=== PATIENT | female | born 1960 | race Caucasian/White ===

== ENCOUNTER 2018-09-08 11:57 | Emergency (ER) | payer BC ==
[~2018-09-08] VITALS: Ht 157.5 cm; Wt 81.6 kg
[2018-09-08 12:05] VITALS: BP_SYST 163
[2018-09-08 13:26] LABS: HEMATOCRIT 41.6 % (36-48); LYMPHOCYTES # (AUTO) 1.5 K/uL (1.0-5.5); MEAN CORPUSCULAR HGB CONC 34 % (32-36); MONOCYTES # (AUTO) 0.6 K/uL (0.0-1.0)
[2018-09-08 13:46] LABS: BASOPHILS % (AUTO) 0.9 % (0.0-2.0); EOSINOPHILS % (AUTO) 1.9 % (0.0-4.0); HEMOGLOBIN 13.8 g/dL (12.0-16.0); LYMPHOCYTES % (AUTO) 11.1 % (20.5-51.5); MEAN CORPUSCULAR HEMOGLOBIN 32 pg (27-31); MEAN CORPUSCULAR VOLUME 95 fL (79.0-98.0); MONOCYTES % (AUTO) 4.6 % (1.7-9.3); NEUTROPHILS # (AUTO) 11.3 K/uL (1.8-7.7); NEUTROPHILS % (AUTO) 81.5 % (40.0-70.0); PLATELET COUNT (AUTO) 272 K/uL (130-430); RED BLOOD CELL COUNT(AUTO) 4.31 MIL/uL (4.2-6.2); RED CELL DISTRIBUTION WIDTH 13.5 % (9.0-15.0); WHITE BLOOD COUNT (AUTO) 13.8 K/uL (4.8-10.8)
[2018-09-08 13:47] LABS: BASOPHILS # (AUTO) 0.1 K/uL (0.0-0.2); EOSINOPHILS # (AUTO) 0.3 K/uL (0.0-0.4)
[2018-09-08 13:57] LABS: ANION GAP 6 (5-15); CALCIUM 9.3 mg/dL (8.4-11.0); CHLORIDE 102 mmol/L (98-107); CREATININE 1.03 mg/dL (0.55-1.30); GLUCOSE 98 mg/dL (70-99); POTASSIUM 4.4 mmol/L (3.5-5.1); SODIUM SERUM 136 mmol/L (136-145); UREA NITROGEN, BLOOD 11 mg/dL (8-21)
[2018-09-08 13:58] LABS: GFR AFRICAN AMERICAN 71 mL/min (>90)
[2018-09-08 14:01] LABS: INR 0.9 (0.8-1.2); PROTHROMBIN TIME 9.7 SECS (9.5-12.5)
[2018-09-08 14:14] LABS: ALANINE AMINOTRANSFERASE 40 U/L (12-78); ALBUMIN 3.4 g/dL (3.4-4.8); ASPARTATE AMINOTRANSFERASE 21 U/L (10-37); FREE T4 (FREE THYROXINE) 0.7 ng/dL (0.6-1.6); TOTAL BILIRUBIN 0.3 mg/dL (0.0-1.0)
[2018-09-08 14:15] LABS: ALCOHOL, BLOOD < 3 mg/dL (<10)
[2018-09-08] MEDS ORDERED: SULFAMETHOXAZOLE/TRIMETHOPR DS 1 TABLET PO ONE (15:00)
[2018-09-08 15:18] LABS: BILIRUBIN,URINE NEGATIVE (NEGATIVE); BLOOD, URINE NEGATIVE (NEGATIVE); CLARITY/URINE CLOUDY (CLEAR); COLOR,URINE YELLOW (YELLOW); GLUCOSE,URINE NEGATIVE (NEGATIVE); KETONES,URINE NEGATIVE (NEGATIVE); LEUKOCYTE ESTERASE ,URINE 2+ (NEGATIVE); NITRITE, URINE NEGATIVE (NEGATIVE); PROTEIN URINE 1+ (NEGATIVE); UROBILINOGEN,URINE 0.2 (0.2-1.0)
[2018-09-08 15:24] LABS: BARBITURATE, URINE NEGATIVE (NEG <=200); BENZODIAZEPINE, URINE POSITIVE (NEG <=150); CANNABINOID, URINE NEGATIVE (NEG <=50); COCAINE, URINE NEGATIVE (NEG <=150); METHAMPHETAMINES SCREEN,URINE NEGATIVE (NEG <=500); OPIATE, URINE NEGATIVE (NEG <=100); PHENCYCLIDINE SCREEN,URINE NEGATIVE (NEG <=25); UR TRICYCLIC ANTIDEPRESSANTS NEGATIVE (NEG <=300); URINE AMPHETAMINE NEGATIVE (NEG <=500); URINE METHADONE NEGATIVE (NEG <=200); URINE OXYCODONE SCREEN NEGATIVE (NEG <=100); URINE PROPOXYPHENE SCREEN NEGATIVE (NEG <=300)
[2018-09-08 15:32] LABS: BACTERIA,URINE MODERATE /HPF (None Seen); MUCUS,URINE 1+ /LPF (None Seen); RBC,URINE 20-50 /HPF (0-3); WBC,URINE 0-3 /HPF (0-3)
[2018-09-08 15:35] VITALS: BP_SYST 134
== END 2018-09-08 15:35 | disposition home or self-care (01) ==
LOC: SED 11:57
DX: N39.0 Urinary tract infection, site not specified (principal); R53.1 Weakness; I10 Essential (primary) hypertension; Z86.73 Personal history of transient ischemic attack (TIA), and cerebral infarction without residual deficits; Z91.041 Radiographic dye allergy status
CPT/HCPCS: 36415; 70450; 71045; 74018; 80053; 80307; 81000; 81025; 83605; 83880; 84439; 84484; 85025; 85610; 87040; 87086; 93005; 99284; G0482

== ENCOUNTER 2021-09-25 02:22 | Inpatient (IN) | payer BC, SELFPAY ==
[~2021-09-25] VITALS: Ht 154.9 cm; Wt 80.7 kg
[2021-09-25 02:22] VITALS: BP_SYST 141
[2021-09-25] MEDS ORDERED: ONDANSETRON HCL 4 MG/2 ML VIAL IVP ONE (02:45)
[2021-09-25 03:35] LABS: BASOPHILS # (AUTO) 0.1 K/uL (0.0-0.2); BASOPHILS % (AUTO) 1.2 % (0.0-2.0); EOSINOPHILS # (AUTO) 0.3 K/uL (0.0-0.4); HEMATOCRIT 35.7 % (36-48); HEMOGLOBIN 11.9 g/dL (12.0-16.0); LYMPHOCYTES # (AUTO) 1.1 K/uL (1.0-5.5); LYMPHOCYTES % (AUTO) 13.1 % (20.5-51.5); MEAN CORPUSCULAR HEMOGLOBIN 33 pg (27-31); MEAN CORPUSCULAR HGB CONC 33 % (32-36); MEAN CORPUSCULAR VOLUME 99 fL (79.0-98.0); MONOCYTES # (AUTO) 0.4 K/uL (0.0-1.0); MONOCYTES % (AUTO) 5.3 % (1.7-9.3); NEUTROPHILS # (AUTO) 6.5 K/uL (1.8-7.7); NEUTROPHILS % (AUTO) 77.4 % (40.0-70.0); PLATELET COUNT (AUTO) 284 K/uL (130-430); RED CELL DISTRIBUTION WIDTH 14.9 % (9.0-15.0); WHITE BLOOD COUNT (AUTO) 8.4 K/uL (4.8-10.8)
[2021-09-25 03:44] LABS: ANION GAP 12 (5-15); CHLORIDE 105 mmol/L (98-107); CREATININE 0.65 mg/dL (0.55-1.30); GFR AFRICAN AMERICAN 119 mL/min (>90); GLUCOSE 111 mg/dL (70-99); POTASSIUM 4.4 mmol/L (3.5-5.1); SODIUM SERUM 142 mmol/L (136-145); UREA NITROGEN, BLOOD 13 mg/dL (8-21)
[2021-09-25] MEDS ORDERED: LORazepam 2 MG/ML VIAL IVP ONE (03:45)
[2021-09-25 03:56] LABS: ALANINE AMINOTRANSFERASE 28 U/L (12-78); ALBUMIN 3.1 g/dL (3.4-4.8); ALCOHOL, BLOOD < 3 mg/dL (<10); ASPARTATE AMINOTRANSFERASE 28 U/L (10-37); TOTAL BILIRUBIN 0.4 mg/dL (0.0-1.0)
[2021-09-25 08:41] LABS: BILIRUBIN,URINE NEGATIVE (NEGATIVE); BLOOD, URINE NEGATIVE (NEGATIVE); CLARITY/URINE CLEAR (CLEAR); COLOR,URINE YELLOW (YELLOW); GLUCOSE,URINE NEGATIVE (NEGATIVE); KETONES,URINE NEGATIVE (NEGATIVE); LEUKOCYTE ESTERASE ,URINE NEGATIVE (NEGATIVE); NITRITE, URINE NEGATIVE (NEGATIVE); PH,URINE 6.5 (5.0-8.0); PROTEIN URINE NEGATIVE (NEGATIVE); UROBILINOGEN,URINE 0.2 (0.2-1.0)
[2021-09-25] MEDS ORDERED: ZONI100C42 PO (08:50)
[2021-09-25] MEDS ORDERED: LAMO200T2 PO (08:50)
[2021-09-25] MEDS ORDERED: LACO200T2 PO (08:50)
[2021-09-25 08:56] LABS: BARBITURATE, URINE NEGATIVE (NEG <=200); BENZODIAZEPINE, URINE NEGATIVE (NEG <=150); CANNABINOID, URINE NEGATIVE (NEG <=50); COCAINE, URINE NEGATIVE (NEG <=150); METHAMPHETAMINES SCREEN,URINE NEGATIVE (NEG <=500); OPIATE, URINE NEGATIVE (NEG <=100); PHENCYCLIDINE SCREEN,URINE NEGATIVE (NEG <=25); UR TRICYCLIC ANTIDEPRESSANTS NEGATIVE (NEG <=300); URINE AMPHETAMINE NEGATIVE (NEG <=500); URINE METHADONE NEGATIVE (NEG <=200); URINE OXYCODONE SCREEN NEGATIVE (NEG <=100); URINE PROPOXYPHENE SCREEN NEGATIVE (NEG <=300)
[2021-09-25] MEDS: levETIRAcetam 500 MG TABLET PO SCH ×2 (09:32→22:12)
[2021-09-25 10:00] VITALS: BP_SYST 127
[2021-09-25] MEDS ORDERED: LamoTRIgine 100 MG TABLET PO ONE (10:00)
[2021-09-25] MEDS ORDERED: LACOSAMIDE 100 MG TABLET PO ONE (10:00)
[2021-09-25 11:17] VITALS: BP_SYST 116
[2021-09-25] MEDS: ONDANSETRON HCL 4 MG/2 ML VIAL IVP PRN (13:42)
[2021-09-25 15:11] VITALS: BP_SYST 131
[2021-09-25] MEDS ORDERED: ZONISAMIDE 100 MG CAPSULE PO SCH (17:00)
[2021-09-25] MEDS: ZONISAMIDE 100 MG CAPSULE PO SCH (17:11)
[2021-09-25 20:00] VITALS: BP_SYST 101
[2021-09-25] MEDS ORDERED: LamoTRIgine 100 MG TABLET PO SCH (21:00)
[2021-09-25] MEDS ORDERED: LACOSAMIDE 100 MG TABLET PO SCH (21:00)
[2021-09-25] MEDS: LamoTRIgine 100 MG TABLET PO SCH (22:12)
[2021-09-25] MEDS: LACOSAMIDE 100 MG TABLET PO SCH (22:12)
[2021-09-26 00:22] VITALS: BP_SYST 101
[2021-09-26] MEDS: LamoTRIgine 100 MG TABLET PO SCH ×2 (07:40→21:22)
[2021-09-26] MEDS: levETIRAcetam 500 MG TABLET PO SCH (07:40)
[2021-09-26] MEDS: LACOSAMIDE 100 MG TABLET PO SCH ×2 (07:40→21:21)
[2021-09-26 08:00] VITALS: BP_SYST 137
[2021-09-26 08:53] LABS: ALBUMIN 2.8 g/dL (3.4-4.8); CREATININE 0.66 mg/dL (0.55-1.30); POTASSIUM 4.1 mmol/L (3.5-5.1); THYROID STIMULATING HORMONE 0.76 uIu/mL (0.36-3.74); TOTAL BILIRUBIN 0.1 mg/dL (0.0-1.0)
[2021-09-26 11:38] LABS: BASOPHILS # (AUTO) 0.1 K/uL (0.0-0.2); BASOPHILS % (AUTO) 1.3 % (0.0-2.0); EOSINOPHILS # (AUTO) 0.2 K/uL (0.0-0.4); EOSINOPHILS % (AUTO) 2.5 % (0.0-4.0); HEMATOCRIT 36.8 % (36-48); HEMOGLOBIN 12.4 g/dL (12.0-16.0); LYMPHOCYTES # (AUTO) 1.4 K/uL (1.0-5.5); LYMPHOCYTES % (AUTO) 17.1 % (20.5-51.5); MEAN CORPUSCULAR HEMOGLOBIN 33 pg (27-31); MEAN CORPUSCULAR HGB CONC 34 % (32-36); MEAN CORPUSCULAR VOLUME 98 fL (79.0-98.0); MONOCYTES # (AUTO) 0.4 K/uL (0.0-1.0); MONOCYTES % (AUTO) 5.1 % (1.7-9.3); NEUTROPHILS # (AUTO) 6.2 K/uL (1.8-7.7); PLATELET COUNT (AUTO) 309 K/uL (130-430); RED BLOOD CELL COUNT(AUTO) 3.75 MIL/uL (4.2-6.2); RED CELL DISTRIBUTION WIDTH 14.6 % (9.0-15.0); WHITE BLOOD COUNT (AUTO) 8.4 K/uL (4.8-10.8)
[2021-09-26 12:58] VITALS: BP_SYST 126
[2021-09-26 17:00] VITALS: BP_SYST 130
[2021-09-26] MEDS: ZONISAMIDE 100 MG CAPSULE PO SCH (17:32)
[2021-09-26 20:00] VITALS: BP_SYST 136
[2021-09-26] MEDS: ONDANSETRON HCL 4 MG/2 ML VIAL IVP PRN (22:41)
[2021-09-27 00:49] VITALS: BP_SYST 126
[2021-09-27 07:00] VITALS: BP_SYST 133
[2021-09-27] MEDS: LamoTRIgine 100 MG TABLET PO SCH ×2 (07:28→21:32)
[2021-09-27] MEDS: LACOSAMIDE 100 MG TABLET PO SCH ×2 (07:29→21:32)
[2021-09-27 08:28] VITALS: BP_SYST 133
[2021-09-27 12:32] VITALS: BP_SYST 130
[2021-09-27 16:00] VITALS: BP_SYST 132
[2021-09-27] MEDS: ZONISAMIDE 100 MG CAPSULE PO SCH (16:32)
[2021-09-27 19:00] VITALS: BP_SYST 134
[2021-09-28 01:31] VITALS: BP_SYST 168
[2021-09-28] MEDS: LamoTRIgine 100 MG TABLET PO SCH ×2 (07:39→21:31)
[2021-09-28] MEDS: LACOSAMIDE 100 MG TABLET PO SCH ×2 (07:39→21:32)
[2021-09-28 08:15] VITALS: BP_SYST 155
[2021-09-28] MEDS: ONDANSETRON 4 MG ODT TAB PO PRN (09:30)
[2021-09-28 11:11] VITALS: BP_SYST 142
[2021-09-28 16:41] VITALS: BP_SYST 135
[2021-09-28] MEDS: ZONISAMIDE 100 MG CAPSULE PO SCH (16:54)
[2021-09-28 20:00] VITALS: BP_SYST 137
[2021-09-29] VITALS (8 sets, daily range): BP systolic 109–155
[2021-09-29] MEDS: LamoTRIgine 100 MG TABLET PO SCH ×2 (09:00→15:49)
[2021-09-29] MEDS: LACOSAMIDE 100 MG TABLET PO SCH ×2 (09:00→15:49)
[2021-09-29] MEDS: ZONISAMIDE 100 MG CAPSULE PO SCH (15:49)
[2021-09-30 01:47] VITALS: BP_SYST 134
[2021-09-30 08:05] VITALS: BP_SYST 149
[2021-09-30] MEDS: LamoTRIgine 100 MG TABLET PO SCH ×2 (08:59→22:00)
[2021-09-30] MEDS: LACOSAMIDE 100 MG TABLET PO SCH ×2 (08:59→21:55)
[2021-09-30 11:25] VITALS: BP_SYST 145
[2021-09-30 16:47] VITALS: BP_SYST 140
[2021-09-30] MEDS: ZONISAMIDE 100 MG CAPSULE PO SCH (17:46)
[2021-09-30 23:34] VITALS: BP_SYST 144
[2021-10-01 03:16] VITALS: BP_SYST 146
[2021-10-01] MEDS: ONDANSETRON 4 MG ODT TAB PO PRN ×3 (04:05→18:22)
[2021-10-01 08:39] VITALS: BP_SYST 154
[2021-10-01] MEDS: LACOSAMIDE 100 MG TABLET PO SCH ×2 (09:05→22:39)
[2021-10-01] MEDS: LamoTRIgine 100 MG TABLET PO SCH ×2 (09:06→22:39)
[2021-10-01 11:28] VITALS: BP_SYST 156
[2021-10-01 16:25] VITALS: BP_SYST 117
[2021-10-01] MEDS: ZONISAMIDE 100 MG CAPSULE PO SCH (22:43)
[2021-10-02 00:17] VITALS: BP_SYST 126
[2021-10-02 01:27] VITALS: BP_SYST 132
[2021-10-02 08:00] VITALS: BP_SYST 144
[2021-10-02] MEDS: LACOSAMIDE 100 MG TABLET PO SCH ×2 (09:08→21:32)
[2021-10-02] MEDS: LamoTRIgine 100 MG TABLET PO SCH ×2 (09:09→21:32)
[2021-10-02] MEDS: ONDANSETRON 4 MG ODT TAB PO PRN (09:17)
[2021-10-02 12:00] VITALS: BP_SYST 138
[2021-10-02 16:00] VITALS: BP_SYST 124
[2021-10-02] MEDS: ZONISAMIDE 100 MG CAPSULE PO SCH (17:31)
[2021-10-02 20:00] VITALS: BP_SYST 132
[2021-10-03 01:09] VITALS: BP_SYST 128
[2021-10-03 08:14] VITALS: BP_SYST 108
[2021-10-03] MEDS: LACOSAMIDE 100 MG TABLET PO SCH ×2 (09:01→21:07)
[2021-10-03] MEDS: LamoTRIgine 100 MG TABLET PO SCH ×2 (09:02→21:07)
[2021-10-03] MEDS: ONDANSETRON 4 MG ODT TAB PO PRN (12:31)
[2021-10-03 13:19] VITALS: BP_SYST 133
[2021-10-03 17:10] VITALS: BP_SYST 146
[2021-10-03] MEDS: ZONISAMIDE 100 MG CAPSULE PO SCH (17:30)
[2021-10-03 20:00] VITALS: BP_SYST 132
[2021-10-04] MEDS: LORazepam 2 MG/ML VIAL IVP PRN ×2 (00:41→23:50)
[2021-10-04 00:59] VITALS: BP_SYST 117
[2021-10-04] MEDS: LACOSAMIDE 100 MG TABLET PO SCH ×2 (09:18→21:12)
[2021-10-04] MEDS: LamoTRIgine 100 MG TABLET PO SCH ×2 (09:19→21:12)
[2021-10-04] MEDS: ONDANSETRON HCL 4 MG/2 ML VIAL IVP PRN ×2 (12:04→12:06)
[2021-10-04 13:02] VITALS: BP_SYST 129
[2021-10-04 17:59] VITALS: BP_SYST 141
[2021-10-04] MEDS: ZONISAMIDE 100 MG CAPSULE PO SCH (18:07)
[2021-10-04 20:00] VITALS: BP_SYST 135
[2021-10-05 00:50] VITALS: BP_SYST 130
[2021-10-05] MEDS: LORazepam 2 MG/ML VIAL IVP PRN ×3 (03:51→16:22)
[2021-10-05 07:56] LABS: BASOPHILS # (AUTO) 0.1 K/uL (0.0-0.2); EOSINOPHILS # (AUTO) 0.3 K/uL (0.0-0.4); HEMATOCRIT 36.9 % (36-48); HEMOGLOBIN 12.2 g/dL (12.0-16.0); LYMPHOCYTES % (AUTO) 19.4 % (20.5-51.5); MEAN CORPUSCULAR HEMOGLOBIN 32 pg (27-31); MEAN CORPUSCULAR HGB CONC 33 % (32-36); MEAN CORPUSCULAR VOLUME 98 fL (79.0-98.0); MONOCYTES # (AUTO) 0.6 K/uL (0.0-1.0); MONOCYTES % (AUTO) 6.5 % (1.7-9.3); NEUTROPHILS % (AUTO) 70.1 % (40.0-70.0); PLATELET COUNT (AUTO) 259 K/uL (130-430); RED BLOOD CELL COUNT(AUTO) 3.76 MIL/uL (4.2-6.2); RED CELL DISTRIBUTION WIDTH 14.5 % (9.0-15.0)
[2021-10-05 08:00] VITALS: BP_SYST 130
[2021-10-05] MEDS: LamoTRIgine 100 MG TABLET PO SCH (08:11)
[2021-10-05] MEDS: LACOSAMIDE 100 MG TABLET PO SCH (08:12)
[2021-10-05 08:33] LABS: CALCIUM 8.8 mg/dL (8.4-11.0); CREATININE 0.8 mg/dL (0.55-1.30); POTASSIUM 3.7 mmol/L (3.5-5.1)
[2021-10-05 08:34] LABS: ALBUMIN 3.2 g/dL (3.4-4.8); TOTAL BILIRUBIN 0.4 mg/dL (0.0-1.0)
[2021-10-05] MEDS: ONDANSETRON HCL 4 MG/2 ML VIAL IVP PRN (10:13)
[2021-10-05 12:21] VITALS: BP_SYST 131
[2021-10-05 16:29] VITALS: BP_SYST 123
[2021-10-05 16:53] VITALS: BP_SYST 123
[2021-10-05] MEDS: ZONISAMIDE 100 MG CAPSULE PO SCH (17:04)
[2021-10-05 20:41] VITALS: BP_SYST 111
== END 2021-10-05 21:00 | DRG 101 ==
LOC: SED 02:22 → STU 05:24 → SMU 09-30 12:48
PROVIDERS: ADMIT Internal Medicine; ATTEND Internal Medicine
DX: G40.509 Epileptic seizures related to external causes, not intractable, without status epilepticus (principal); I69.354 Hemiplegia and hemiparesis following cerebral infarction affecting left non-dominant side; I10 Essential (primary) hypertension; Z20.822 Contact with and (suspected) exposure to COVID-19; Z88.0 Allergy status to penicillin; Z88.8 Allergy status to other drugs, medicaments and biological substances; Z91.041 Radiographic dye allergy status
CPT/HCPCS: 36415; 70450-TC; 74018; 76376; 80053; 80307; 81003; 83605; 83880; 84443; 84484; 85025; 87081; 95816; 96374; 96375; 97110-GP; 97116-GP; 97163-GP; 97530-GP; 99285; G0378; G0482; J2060; J2405; Q0162